=== PATIENT | male | born 1980 | race Asian ===

== ENCOUNTER 2019-01-05 08:51 | Emergency (ER) | payer MEDICAID ==
[~2019-01-05] VITALS: Ht 170.2 cm; Wt 54.2 kg
[2019-01-05] MEDS ORDERED: ibuprofen 200mg tablet PO ONE (09:55)
[2019-01-05 11:26] VITALS: BP 122/84
== END 2019-01-05 11:28 | disposition home or self-care (01) ==
LOC: ER 08:52
DX: R22.42 Localized swelling, mass and lump, left lower limb (principal); F17.200 Nicotine dependence, unspecified, uncomplicated; F10.99 Alcohol use, unspecified with unspecified alcohol-induced disorder; F12.90 Cannabis use, unspecified, uncomplicated; Y90.9 Presence of alcohol in blood, level not specified
CPT/HCPCS: 93971; 99284